=== PATIENT | male | born 1995 ===

== ENCOUNTER 2023-07-24 08:55 | Outpatient (CLI) | payer OTHER ==
[2023-07-24 09:49] LABS: PH,URINE 5.5 (5.0-8.0); URINE APPEARANCE Clear; URINE BILIRRUBIN Negative (NEGATIVE); URINE BLOOD Negative; URINE COLOR Yellow; URINE GLUCOSE Negative (NEGATIVE); URINE LEUKOCYTE Negative; URINE NITRATE Negative; URINE PROTEIN Negative (NEGATIVE); URINE UROBILINOGEN 0.2 E.U./dl
[2023-07-24 09:54] LABS: URINE BACTERIA 11.3 uL (0.0-1933); URINE RBC 2.1 uL (0.0-20.8); URINE WBC 4.1 uL (0.0-23.2)
[2023-07-24 09:58] LABS: HEMATOCRIT 43.3 % (39.0-48.0); MEAN CELL VOLUME 89.4 fL (80.0-100.00); MEAN CORPUSCULAR HEMOGLOBIN 31.1 pg (27.00-32.0); MEAN CORPUSCULAR HGB CONC 34.8 g/dl (32.0-36.0); PLATELET COUNT 230 K/uL (150-450); RED BLOOD COUNT 4.84 M/uL (4.00-6.00); RED CELL DISTRIBUTION WIDTH 12.9 % (11.5-14.5)
[2023-07-24 10:26] LABS: ALBUMIN 4.3 gm/dL (3.4-5.0); BILIRUBIN TOTAL 1.31 mg/dL (0.3-1.2); CALCIUM 9.3 mg/dL (8.5-10.1); CHOL HDL RATIO 5.2 (0-5.0); CREATININE SERUM 0.94 mg/dL (0.70-1.30); GFR 94.88; GLOBULINA 3.4 G/DL (2.4-3.5); POTASSIUM 4.03 mEq/L (3.5-5.1); TOTAL PROTEIN 7.7 gm/dL (6.4-8.2)
[2023-07-24 10:34] LABS: URINE EPITHELIAL CELLS 1.3 uL (0.0-38.8)
== END 2023-07-24 08:58 | disposition home or self-care (01) ==
LOC: LAB 08:55
DX: E78.2 Mixed hyperlipidemia (principal); Z11.3 Encounter for screening for infections with a predominantly sexual mode of transmission; N50.89 Other specified disorders of the male genital organs; R36.9 Urethral discharge, unspecified

== ENCOUNTER 2023-07-24 08:59 | Outpatient (CLI) | payer OTHER | END 2023-07-24 09:11 | disposition home or self-care (01) | LOC: SONOGRAMA 08:59 | DX: N50.819 Testicular pain, unspecified (principal) ==